=== PATIENT | male | born 1990 | race Caucasian/White ===

== ENCOUNTER 2024-09-21 12:24 | Emergency (ER) | payer BC, SELFPAY ==
[2024-09-21 12:49] VITALS: BP 132/90; PULSE 73; RESP 18; TEMP 36.7; O2SAT 97; BMI 30.3
[2024-09-21 16:10] VITALS: BP 133/87; PULSE 77; RESP 20; TEMP 37.1; O2SAT 98
--- NOTE | 2024-09-21 16:33 | ED_ITS ---
HPI - General Adult General Date Seen: 09/21/24 Chief complaint: Anxiety Stated complaint: psychiatric eposes Time Seen by Provider: 09/21/24 16:32 History of Present Illness HPI narrative: 33-year-old male presenting to the ER today with concern that he is having zuleima. He has history of bipolar, also has been previously diagnosed with depression, anxiety, PTSD. He has a psychiatrist at a clinic in [place]. He also notes that he has previous hospitalizations for bipolar and zuleima apparently all over 10 years ago. Most recent hospitalization was probably in 2012 or 2013. He notes that he has had slowly decompensating symptoms for the past month or so. Initially noted that his sleep was started to deteriorate and then he was starting to get manic where he would could accomplish a lot of activity in-1 day's time. Reports to the triage note that he has not slept in 6 nights. He is on medications but they make him feel depressed. He stopped his Adderall a couple weeks ago, because he has been feeling very agitated . He has been having somewhat trouble sleeping that he started to feel very depressed and anxious. He does not want to kill self but is getting so desperate for sleep that he is thinking about suicide just the hip able to rest. He is not hallucinating. He is not self medicating with any drugs or alcohol. He did use 1 THC beverage a couple of months ago. He was in contact with his psychiatrist office her nurse practitioner and they rate with him that he needs inpatient admission. Sounds like he was admitted most recently, over 10 years ago, had [facility]. Related Data Home Medications ?Medication ?Instructions ?Recorded ?Confirmed fluoxetine 20 mg capsule (Prozac) 20 mg PO DAILY 09/2109/21/24 temazepam 15 mg capsule (Restoril) 15 mg PO QHS 09/21/24 trazodone 150 mg tablet 75 mg PO DAILY 09/21/2409/11 Allergies Allergy/AdvReac Type Severity Reaction Status Date / Time No Known Drug Allergies Allergy Verified 09/21/24 12:57 Exam Narrative: Exam Narrative: Constitutional: Appears well-developed and well-nourished. Alert. He is conversant and hyperverbal. Polite. HENT: Head: Atraumatic. Nose: Nose normal. Mouth/Throat: Oral mucosa is clear and moist. no trismus. Pharynx normal. Tonsils symmetric. No tonsillar enlargement, erythema, or exudate. Eyes: Conjunctivae normal. EOM normal. Pupils equal, round, and reactive to light. No scleral icterus. Neck: Normal range of motion. Neck supple. No tracheal deviation present. Cardiovascular: Normal rate, regular rhythm. No gallop. No friction rub. No murmur heard. Symmetric radial artery pulses Pulmonary/Chest: Effort normal. No stridor. No respiratory distress. No wheezes. No rales. No rhonchi . No tenderness. Abdominal: Soft. Bowel sounds normal. No distension. No mass. No tenderness. No rebound. No guarding. Musculoskeletal: RUE: Normal range of motion. No tenderness. No deformity LUE: Normal range of motion. No tenderness. No deformity RLE: Normal range of motion. No edema. No tenderness. No deformity LLE: Normal range of motion. No edema. No tenderness. No deformity Neurological: Alert and oriented to person, place, and time. Normal strength. CN II-VII intact. No sensory deficit. GCS eye subscore is 4. GCS verbal subscore is 5. GCS motor subscore is 6. Normal coordination Skin: Skin is warm and dry. No rash noted. No pallor. Normal capillary refill. Psychiatric: Anxious and at times almost tearful. Very upset about not being able to sleep. Endorses 6 nights of insomnia, also recent hyperactivity and racing thoughts. He feels like he is probably manic. He has a history of heena a. No drugs or alcohol other than 1 THC beverage about a month or 2 ago. Is starting to think about wanting to just because he needs sleep he. However says he is not really suicidal and does not want to . Rather that he would take as a relief for for his insomnia Const: Vital Signs, click to edit/add: Vital Signs - 24 hr 09/21/24 12:49 09/21/24 16:10 Temperature 98.1 F 98.7 F Pulse Rate [Pulse Oximeter] 73 77 Respiratory Rate 18 20 Blood Pressure [Le ft Upper Arm] 132/90 H 133/87 Pulse Oximetry 97 98 Oxygen Delivery Me thod Room Air Room Air Course Vital Signs Vital signs: Initial Vital Signs Temperature 98.1 F 09/21/24 12:49 Temperature Source Temporal Artery Scan 09/21/24 12:49 Pulse Rate 73 09/21/24 12:49 Respiratory Rate 18 09/21/24 12:49 Blood Pressure 132/90 H 09/21/24 12:49 Blood Pressure Mean 104 09/21/24 12:49 Blood Pressure Position Sitting 09/21/24 12:49 Pulse Oximetry 97 09/21/24 12:49 Oxygen Delivery Method Room Air 09/21/24 12:49 Vital Signs Temperature 98.1 F 09/21/24 12:49 Pulse Rate 73 09/21/24 12:49 Respiratory Rate 18 09/21/24 12:49 Blood Pressure 132/90 H 09/21/24 12:49 Pulse Oximetry 97 09/21/24 12:49 Oxygen Delivery Method Room Air 09/21/24 12:49 Temperature 98.7 F 09/21/24 16:10 Pulse Rate 77 09/21/24 16:10 Respiratory Rate 20 09/21/24 16:10 Blood Pressure 133/87 09/21/24 16:10 Pulse Oximetry 98 09/21/24 16:10 Oxygen Delivery Method Room Air 09/21/24 16:10 Medical Decision Making MDM Narrative Medical decision making narrative: Pleasant 33-year-old male with a history of bipolar, anxiety, PTSD presents to the ER today with symptoms that sound suggestive for possibly deep compensating zuleima. Said a few weeks of gradually decreasing sleep, increasing activity, racing thoughts. It has gotten to the point now where he has not been able to sleep for the past 6 nights. He started and have passive thoughts of dying to so he can get some rest. However he is not actively suicidal and has not done anything to harm himself. He is anxious and somewhat rapidly verbal during conversation but overall is cooperative. He presents voluntarily. He and his outpatient psychiatrist agree that he needs inpatient mental health admission. He is voluntarily seeking admission. Laboratory workup is reassuring. With reasonable clinical confidence I think he is medically clear for mental health evaluation. Urine drug screen is positive for benzodiazepines and I believe this reflects his prescription use of temazepam. He is evaluated by [facility]. Based on their assessment he is overall low risk for suicidality but does meet criteria for involuntary inpatient mental the admission because of his zuleima insomnia and decompensated bipolar disorder. [facility] is looking for inpatient placement at this time. Discussed with my oncoming partner, Dr. Hutton at 8:00 p.m. on 09/21. Lab Data Labs: Lab Results 09/21/24 09/21/24 09/21/24 Range/Units 16:59 17:00 17:05 WBC 8.69 (4.50-11.00) K/uL RBC 5.38 (4.30-5.90) m/uL Hgb 16.1 (13.5-17.5) gm/dL Hct 48.1 (37.0-53.0) % MCV 89 (80-100) fL MCH 30 (26-34) pg MCHC 34 (32-36) gm/dL RDW Coeff of [place] 11.7 (11.5-15.5) % Plt Count 262 (140-440) K/uL Neut % (Auto) 71.2 (42.0-72.0) % Lymph % (Auto) 22.4 (20-44) % [place] % (Auto) 5.4 (0.0-11.0) % Eos % (Auto) 0.6 (0.0-7.0) % Baso % (Auto) 0.2 (0.0-3.0) % Neut # (Auto) 6.18 (1.7-7.0) K/uL Lymph # (Auto) 1.95 (0.90-2.90) K/uL [place] # (Auto) 0.50 (0.00-0.90) K/UL Eos # (Auto) 0.05 (0.00-0.50) K/uL Baso # (Auto) 0.02 (0.00-0.30) K/uL Abs Immat Gran (auto) 0.02 (0.00-0.30) K/uL Imm/Tot Granulo (auto) 0.2 % Sodium 137 (135-149) mmol/L Potassium 4.2 (3.6-5.1) mmol/L Chloride 101 (96-114) mmol/L Carbon Dioxide 28 (20-32) mmol/L Anion Gap 8 (7-15) mEq/L BUN 16 (5-24) mg/dL Creatinine 1.1 (0.5-1.5) mg/dL Estimated Creat Clear 94.62 Estimated GFR 90 ml/min Glucose 98 (60-115) mg/dL Calcium 9.7 (8.4-10.6) mg/dL Total Bilirubin 0.7 (0.1-1.5) mg/dL AST 36 H (12-35) U/L ALT 44 (4-50) U/L Alkaline Phosphatase 57 (40-150) U/L Troponin I < 0.01 (0.01-0.04) ng/mL Total Protein 7.7 (6.0-8.3) g/dL Albumin 4.9 (3.3-5.0) g/dL Salicylates < 1.0 L (1.0-10) mg/dL Urine Opiates Screen Negative (Negative) Ur Oxycodone Screen Negative (Negative) Urine Methadone Screen Negative (Negative) Acetaminophen < 10.0 (10.0-30.0) ug/mL Ur Barbiturates Screen Negative (Negative) U Tricyclic Antidepress Negative (Negative) Ur Phencyclidine Scrn Negative (Negative) Ur Amphetamines Screen Negative (Negative) U Methamphetamines Scrn Negative (Negative) U Benzodiazepines Scrn POSITIVE A (Negative) Urine Cocaine Screen Negative (Negative) U Marijuana (THC) Screen Negative (Negative) Ur Drug Screen Comment See Note Ethyl Alcohol < 0.01 (0.01-0.03) % SARS-CoV-2 (PCR) Negative SARS-CoV-2 (Negative) Discharge Plan Discharge Clinical Impression: Zuleima, Insomnia, Anxiety Patient Disposition: Xfer Other Prescriptions: No Action temazepam [Restoril] 15 mg capsule 15 mg PO QHS fluoxetine [Prozac] 20 mg capsule 20 mg PO DAILY trazodone 150 mg tablet 75 mg PO DAILY Stand Alone Forms: MyHealth Info Instructions
[2024-09-21 17:16] LABS: Hematocrit 48.1 % (37.0-53.0); Hemoglobin* 16.1 gm/dL (13.5-17.5); Immature Granulocytes Abs Auto 0.02 K/uL (0.00-0.30); Immature Granulocytes Pct Auto 0.2 %; Lymphocytes Absolute Auto 1.95 K/uL (0.90-2.90); Mean Corpuscular HGB Conc 34 gm/dL (32-36); Mean Corpuscular Hemoglobin 30 pg (26-34); Mean Corpuscular Volume 89 fL (80-100); RDW Coefficient of Variation % 11.7 % (11.5-15.5); Red Blood Count 5.38 m/uL (4.30-5.90); White Blood Count* 8.69 K/uL (4.50-11.00)
[2024-09-21 17:17] LABS: Slide Review Reflex No
[2024-09-21 17:22] LABS: Cannabinoid Screen Urine Negative (Negative); Methamphetamines Screen Urine Negative (Negative); Tricyclic Antidepressant Urine Negative (Negative)
[2024-09-21 17:32] LABS: Albumin* 4.9 g/dL (3.3-5.0); Chloride* 101 mmol/L (96-114); Potassium* 4.2 mmol/L (3.6-5.1); Sodium* 137 mmol/L (135-149)
[2024-09-21 17:34] LABS: Blood Urea Nitrogen* 16 mg/dL (5-24); Creatinine* 1.1 mg/dL (0.5-1.5); Est. Creatinine Clearance* 94.62; Estimated Glomerular Filt Rate 90 ml/min
[2024-09-21 17:35] LABS: Alanine Aminotransferase* 44 U/L (4-50); Alkaline Phosphatase* 57 U/L (40-150); Anion Gap 8 mEq/L (7-15); Aspartate Amino Transferase* 36 U/L (12-35); Bilirubin Total* 0.7 mg/dL (0.1-1.5); Calcium* 9.7 mg/dL (8.4-10.6); Carbon Dioxide* 28 mmol/L (20-32); Glucose* 98 mg/dL (60-115); Total Protein* 7.7 g/dL (6.0-8.3)
[2024-09-21 17:36] LABS: Acetaminophen* < 10.0 ug/mL (10.0-30.0); Ethanol* < 0.01 % (0.01-0.03); Salicylate* < 1.0 mg/dL (1.0-10)
--- OUTSIDE RECORDS SUMMARY | 2024-09-21 17:37 | XMS_ITS | Encounter Summary ---
Author Organization [facility] Address [address] [place] [address] Care Team Providers Care Cloth Shrinker Name Role Phone No Ref-Primary, Physician Primary Care Provider James Najera MD Primary Care Provider Un available Ron Crawley MD Primary Care Provider [phone] [facility] Primary Care Provide r [facility] Primary Care Provide r No Ref-Primary, Physician Primary Care Provider Sadia Mansfield APRN REGIONAL ACCOUNT MANAGER Unavailable [phone] Encounter Details Date Type Department Care Team (Late st Contact Info) Description 01/28/2012 Orders Only [facility] [address] [place] [phone] Alejandra Roth I Social History Tobacco Use Types Packs/Day Years Used Date Smoking Tobacco: Never Alcohol Use Standard Drinks/Week Comments Not Asked 0 (1 standard drink = 0.6 oz pur e alcohol) Sex and Gender Information Value Date Recorded Sex Assigned at Not on file Legal Sex Male 4:32 AM MANAGER CHINESE Gender Identity Not on file Sexual Orientation Not on file documented as of this encounter Plan of Treatment Not on file documented as of this encounter Visit Diagnoses Not on filedocumented in this encounter Care Teams Cloth Shrinker Relationship Specialty Start Date End Date No Ref-Primary, Physician PCP - General 11/12/11 04/24/12 James Najera MD PCP - General Family Practice 04/25/12 04/30/12 Ron Crawley MD [facility] [address] [place] [address] PCP - General Family Practice 05/01/12 11/27/17 [facility], [facility] [address] [place] [address] PCP - General 11/28/17 02/02/22 [facility], [facility] [address] [place], [place] [id number] PCP - General 02/03/22 02/12/22 No Ref-Primary, Physician PCP - General 02/13/22 Sadia Mansfield APRN [facility] [address] [place] [address] Assigned PCP 01/17/22 documented as of this encounter
--- OUTSIDE RECORDS SUMMARY | 2024-09-21 17:37 | XMS_ITS | Clinical Summary ---
Author Organization [facility] Address [address] [place] [address] Care Team Providers Care Basketball Coach Name Role Phone No Ref-Primary, Physician Primary Care Provider Sadia Mansfield APRN METROLOGY TECHNICIAN Unavailable [phone] Allergies Active Allergy Reactions Criticality Noted Date Comments No Known Drug Allergy Low 05/13/2003 Medications NEW MEDIndications: PTTD (posterior tibial tendon dysfunction),En thesopathy of unspecified site,Pes planus,Equinus deformity of foot,Ankle pain Apply 1 g topically 3 times daily as needed 120 g 3 09/20/19 13 Active FLUoxetine (PROZAC) 20 MG capsule Taking 10 mg currently and weaning off 5 12/03/19 18 Active traZODone (DESYREL) 150 MG tablet Pt taking 75 mg currently 5 12/03/19 18 Active gabapentin (NEURONTIN) 100 MG capsule Take 1 capsule (100 mg) by mouth 3 times daily 20 capsule 02/04/20 22 Active Additional Information Patient taking differently: 600 mgOral 3 TIMES DAILY, Reported on 02/14/2022 amphetamine-dex troamphetamine (ADDERALL) 15 MG tablet Take 1 tablet by mouth 2 times daily 01/31/20 22 Active acetaminophen (TYLENOL) 500 MG tablet Take 500-1,000 mg by mouth every 6 hours as needed for mild pain Up to 4000 mg daily Active methylPREDNISol one (MEDROL DOSEPAK) 4 MG tablet therapy pack Follow Package Directions 21 tablet 05/24/19 23 Active NO ACTIVE MEDICATIONS . 0 0 05/13/19 04 009 Discontinu ed(Stopped by Patient (No AVS)) Active Problems Patient Care Coordination No te Formatting of this note migh t be different from the original. [email or web address] Problem Noted Date Diagnosed Date Attention deficit disorder 02/14/2022 Lumbar disc herniation 02/14/2022 MENTAL HEALTH 11/12/2011 CARDIOVASCULAR SCREENING; LDL GOAL LESS THAN 160 12/11/2009 Resolved Problems Problem Noted Date Diagnosed Date Resolved Date Right ankle pain 02/23/2015 04/20/2015 Sprain and strain of other s pecified sites of knee and leg 10/22/2006 11/29/2006 Immunizations Immunization Administration Dates Next Due DT (PEDS <7y) 05/13/2003 DTP-Hib 07/09/1994, 1,07/17/1990,05/01 HepB 05/13/2003 Hepatitis B, Peds (Engerix-B/Recombivax HB) 05/13/2003,05/18/1997,04/13/1997 Influenza (IIV3) PF 11/13/2011 MMR (MMRII) 05/18/1997, 8,09/29/1991,07/09 Meningococcal ACWY (Menactra ) 08/24/2008 Poliovirus, inactivated (IPV) 10/26/1994 ,07/09/1994,09/23/1990,07/17,05/01/1990 TDAP (Adacel,Boostrix) 03/12/2012 Td (Adult), Adsorbed 05/13/2003 Varicella (Varivax) 06/22/2016,04/13/1997 Social History Tobacco Use Types Packs/Day Years Used Date Smoking Tobacco: Never Smokeless Tobacco: Never Tobacco Cessation:Counseling Given: Not Answered Alcohol Use Standard Drinks/Week Comments No 0 (1 standard drink = 0.6 oz pur e alcohol) PHQ-2 Answer Date Recorded PHQ-2 Score 2 02/14/2022 Adolescent Education Answer Date Record ed Getting School Help Needed Not on file 11/25 Sex and Gender Information Value Date Recorded Sex Assigned at Not on file Legal Sex Male 4:32 AM HIDE CLEANER Gender Identity Not on file Sexual Orientation Not on file Last Filed Vital Signs Vital Sign Reading Time Taken Comments Blood Pressure 120/79 05/23/2022 1:00 PM CDT Pulse 72 05/23/2022 1:00 PM CDT Temperature 37.2 C (98.9 F) 02/14/2022 9:09 AM HIDE CLEANER Respiratory Rate 22 02/14/2022 9:09 AM HIDE CLEANER Oxygen Saturation 98% 05/23/2022 1:00 PM CDT Inhaled Oxygen Concentration - - Weight 102.1 kg (225 lb) 05/23/2022 10:45 AM CDT Height 175.3 cm (5' 9) 05/23/2022 10:45 AM CDT Body Mass Index 33.23 05/23/2022 10:45 AM CDT Plan of Treatment Health Maintenance Due Date Last Done Comments DEPRESSION ACTION PLAN 1989 PHQ-9 1989 YEARLY PREVENTIVE VISIT 1992 HIV SCREENING 2004 HEPATITIS C SCREENING 10/29/2007 DTAP/TDAP/TD VACCINE (6 - Td or Tdap) 03/12/2022 03/12/2012, 05/13/2003, 07/09/1994, Additional history exists ANNUAL REVIEW OF HM ORDERS 02/14/2023 02/14/2022 COVID-19 VACCINE ( season) 2023 INFLUENZA VACCINE (#1) 2024 11/13/2011 ADVANCE CARE PLANNING 02/14/2027 02/14/2022 ZOSTER VACCINE (1 of 2) 10/29/2039 HEPATITIS B VACCINE Completed 05/13/2003, 05/13/2003, 05/18/1997, Additional history exists MENINGITIS VACCINE Completed 08/24/2008 HPV VACCINE (No Doses Required) Completed PNEUMOCOCCAL VACCINE: PEDIATRICS (0 to 5 YEARS) AND AT-RISK PATIENTS (6 to 49 YEARS) Aged Out No longer eligible based on patient's age to complete this topic Insurance [facility] Advance Directives For more information, please contact: [phone] * Full Code (Latest Code Status on File) Date Activated Date Inactivated Comments 04/25/2012 9:04 AM 02/03/2022 6:17 PM * Full Code Date Activated Date Inactivated Comments 11/12/2011 8:19 PM 11/21/2011 5:38 PM Care Teams Basketball Coach Relationship Specialty Start Date End Date No Ref-Primary, Physician PCP - General 02/13/22 Sadia Mansfield APRN METROLOGY TECHNICIAN [address] [place] [address] Assigned PCP 01/17/22
--- OUTSIDE RECORDS SUMMARY | 2024-09-21 17:37 | XMS_ITS | Clinical Summary ---
Author Organization [facility] Address [address] [place] [id number] Care Team Providers Care Chainstitch Zipper Setter Name Role Phone Pcp, No Primary Care Provider Unavailabl e Allergies No known active allergies Medications Amphetamine-Dex troamphetamine (ADDERALL) 15 mg tablet Take 15 mg by mouth. 03/30/2022 Active Amphetamine-Dex troamphetamine (ADDERALL) 15 mg tablet Take 1 Tablet by mouth two times daily. 01/30/2022 Active ibuprofen (ADVIL; MOTRIN) 800 mg tablet TAKE 1 TABLET BY MOUTH EVERY 8 HOURS NEEDED FOR MODERATE PAIN 05/23/2022 Active traZODone (DESYREL) 150 mg tablet 06/01/2022 Active cyclobenzaprine (FLEXERIL) 10 mg tablet TAKE 1 TABLET BY MOUTH 3 TIMES DAILY NEEDED FOR MUSCLE SPASMS 05/23/2022 Active cyclobenzaprine (FLEXERIL) 5 mg tablet TAKE 1 TABLET BY MOUTH THREE TIMES A DAY NEEDED 05/07/2022 Active FLUoxetine (PROZAC) 10 mg capsule Take 10 mg by mouth once daily. 05/07/2022 Active Active Problems No known active problems Family History Relation Name Status Comments Father Alive Mother Alive Social History Tobacco Use Types Packs/Day Years Used Date Smoking Tobacco: Never Passive Smoke Exposure: Never Smokeless Tobacco: Never Tobacco Cessation:Counseling Given: Not Answered Alcohol Use Standard Drinks/Week Comments Yes 0 (1 standard drink = 0.6 oz pur e alcohol) rare Sex and Gender Information Value Date Recorded Sex Assigned at Not on file Legal Sex Male 8:11 AM MASTER ESTHETICIAN Gender Identity Not on file Sexual Orientation Not on file Obstetrics History Last Filed Vital Signs Vital Sign Reading Time Taken Comments Blood Pressure 122/78 06/07/2022 9:18 AM CDT Pulse 70 06/06/2022 12:09 PM CDT Temperature 36.4 C (97.6 F) 06/06/2022 12:09 PM CDT Respiratory Rate 16 06/07/2022 9:18 AM CDT Oxygen Saturation 97% 06/06/2022 12: 09 PM CDT Inhaled Oxygen Concentration - - Weight 101.8 kg (224 lb 6.4 oz) 06/07/2022 9:18 AM CDT Height 175.3 cm (5' 9) 06/06/2022 12:0 9 PM CDT Body Mass Index 33.14 06/06/2022 12:09 PM CDT Plan of Treatment Health Maintenance Due Date Last Done Comments Tetanus booster 2000 Depression screening for age 12+ 2001 HIV for age 15-65 2004 Hepatitis C screening for ag e 18-79 10/29/2007 Hepatitis B series for 19+ ( 1 of 3 - 19+ 3-dose series) 2008 BMI (ht and wt on same day) for age 18+ 06/07/2023 06/06/2022 COVID-19 vaccine series ( - 2023- season) 2023 Influenza Vaccine (#1) 2024 Pneumococcal series for age 6-49 Aged Out No longer eligible based on patient's age to complete this topic Insurance [facility] Care Teams Chainstitch Zipper Setter Relationship Specialty Start Date End Date Pcp, No . PCP - General 06/26/23
[2024-09-21 17:52] LABS: SARS PCR* Negative SARS-CoV-2 (Negative)
[2024-09-21 20:40] VITALS: BP 132/60; PULSE 62; RESP 16; O2SAT 98
[2024-09-21] MEDS: TRAZODONE HCL 50 MG TABLET 150 MG PO (22:00)
--- NOTE | 2024-09-21 23:57 | ED.NURSE ---
pt awake, ambulated to restroom.
--- NOTE | 2024-09-22 00:04 | ED.NURSE ---
pt given additional pillow and warm blankets.
--- NOTE | 2024-09-22 00:56 | ED.NURSE ---
Report given to CAREY Ghosh at [facility]. Phone number [phone]
--- NOTE | 2024-09-22 01:27 | ED.NURSE ---
EMS arrived. Report given. EMS transporting pt to Hospital.
== END 2024-09-22 01:28 | disposition other institution (70) ==
PROVIDERS: Emergency Medicine; Emergency Provider Family Medicine
DX: F30.9 Manic episode, unspecified (principal); G47.00 Insomnia, unspecified; F41.9 Anxiety disorder, unspecified
CPT/HCPCS: 36415; 80053; 80143; 80179; 80306; 82077; 84484; 85025; 87635; 99283; 99285; A9270

== ENCOUNTER 2024-09-22 01:25 | Outpatient (CLI) | payer BC, SELFPAY | END 2024-09-22 01:26 | disposition home or self-care (01) | LOC: AMB 09-24 13:47 | PROVIDERS: Visit Provider Family Medicine | DX: F30.9 Manic episode, unspecified (principal); G47.00 Insomnia, unspecified; F41.9 Anxiety disorder, unspecified | CPT/HCPCS: A0425; A0429 ==